=== PATIENT | female | born 1960 | race Caucasian/White ===

== ENCOUNTER 2016-04-21 09:38 | Emergency (ER) | payer MEDICAID ==
--- NOTE | 2016-04-21 10:30 | Emergency Department Record ---
History of Present Illness - General Chief Complaint: Cough Stated Complaint: BRONCHITIS Time Seen by Provider: 04/21/16 10:02 Source: Patient Mode of Arrival: Ambulatory Limitations: No limitations - History of Present Illness Initial Comments: pt has been sick for 10 days. she states she is on the 9th day of amoxicillin and is no better. she has a productive cough and sinus drainage and feels sob. no fevers,sweats or chills MD Complaint: Cough, Nasal congestion, Rhinorrhea, Sore throat Onset/Timin -: Days(s) Severity scale (1-10): 5 Consistency: Constant Improves With: Nothing Worsens With: Nothing Context: Sick contacts Associated Symptoms: Cough, Nasal congestion, Shortness of breath Treatments Prior to Arrival: Antibiotics - Related Data Home Medications Medication Instructions Recorded Confirmed Last Taken Hydrocodone/Acetaminophen [[place] 1 each PO ASDIR 08/11/13 04/21/16 04/07/16 7.5-325 Tablet] Ranitidine HCl [Zantac] 150 mg PO BID 08/11/13 04/21/16 04/12/16 Previous Rx's Medication Instructions Recorded Amoxicillin 500 mg PO TID #30 capsule 04/12/16 Azithromycin [Zithromax] 250 mg PO DAILY #6 tab 04/21/16 Allergies Allergy/AdvReac Type Severity Reaction Status Date / Time cephalexin monohydrate Allergy BLISTERS Verified 07/19/14 22:41 [From Keflex] ibuprofen [From Motrin] Allergy HIVES Verified 07/19/14 22:41 tetracycline [Tetracycline] Allergy HIVES Verified 07/19/14 22:41 Travel Screening - Travel/Exposure Within Last 30 Days Have you traveled within the last 30 days?: No Review of Systems Reviewed: No additional complaints except as noted below Constitutional: Reports: As per HPI. Denies: Chills, Fever, Malaise, Night sweats, Weakness, Weight change Eyes: Reports: As per HPI. Denies: Eye discharge, Eye pain, Photophobia, Vision change ENT: Reports: As per HPI. Denies: Congestion, Dental pain, Ear pain, Epistaxis , Hearing loss, Throat pain Respiratory: Reports: As per HPI. Denies: Cough, Dyspnea, Hemoptysis, Stridor, Wheezes Cardiovascular: Reports: As per HPI. Denies: Arrhythmia, Chest pain, Dyspnea on exertion, Edema, Murmurs, Orthopnea, Palpitations, Paroxysmal nocturnal dyspnea, Rheumatic Fever, Syncope Endocrine: Reports: As per HPI. Denies: Fatigue, Heat or cold intolerance, Polydipsia, Polyuria Gastrointestinal: Reports: As per HPI. Denies: Abdominal pain, Constipation, Diarrhea, Hematemesis, Hematochezia, Melena, Nausea, Vomiting Genitourinary: Reports: As per HPI. Denies: Abnormal menses, Discharge, Dyspareunia, Dysuria, Frequency, Hematuria, Incontinence, Retention, Urgency Musculoskeletal: Reports: As per HPI. Denies: Arthralgia, Back pain, Gout, Joint swelling, Myalgia, Neck pain Skin: Reports: As per HPI. Denies: Bruising, Change in color, Change in hair/ nails, Lesions, Pruritus, Rash Neurological: Reports: As per HPI. Denies: Abnormal gait, Confusion, Headache, Numbness, Paresthesias, Seizure, Tingling, Tremors, Vertigo, Weakness Psychiatric: Reports: As per HPI. Denies: Anxiety, Auditory hallucinations, Depression, Homicidal thoughts, Suicidal thoughts, Visual hallucinations Hematological/Lymphatic: Reports: As per HPI. Denies: Anemia, Blood Clots, Easy bleeding, Easy bruising, Swollen glands Past Medical History - SOCIAL HISTORY Smoking Status: Heavy tobacco smoker (>10/day) Alcohol Use: None Drug Use: None - RESPIRATORY Hx Respiratory Disorders: Yes Hx Bronchitis: Yes - CARDIOVASCULAR Hx Cardio Disorders: No - NEURO Hx Neuro Disorders: No - GI Hx GI Disorders: Yes Hx Reflux: Yes Hx Irritable Bowel: Yes Hx Pancreatitis: Yes (05/2014) Hx Ulcer: Yes Comment:: hiatal hernia - Hx Genitourinary Disorders: No - ENDOCRINE Hx Endocrine Disorders: No - MUSCULOSKELETAL Hx Musculoskeletal Disorders: Yes Comment:: psyiatic nerve pain - PSYCH Hx Psych Problems: No - HEMATOLOGY/ONCOLOGY Hx Hematology/Oncology Disorders: No Family Medical History Any Significant Family History?: Yes Family Hx Comment (NOT TO BE USED IN PLACE OF ITEMS BELOW): Mom has COPD Hx Heart Disease: Father Physical Exam - General General Appearance: Alert, Oriented x3, Cooperative, Mild distress - Head Head exam: Normal inspection - Eye Eye exam: Normal appearance, PERRL, EOMI Pupils: Normal accommodation - ENT ENT exam: Normal exam, Mucous membranes dry, Mucous membranes moist, Normal external ear exam, Normal orophraynx Ear exam: Normal external inspection. negative: External canal tenderness Nasal Exam: Normal inspection. negative: Discharge, Sinus tenderness Mouth exam: Normal external inspection, Tongue normal Teeth exam: Normal inspection. negative: Dental caries Throat exam: Tonsillar erythema. negative: Tonsillar exudate - Neck Neck exam: Normal inspection, Full ROM. negative: Tenderness - Respiratory Respiratory exam: Normal lung sounds bilaterally. negative: Respiratory distress - Cardiovascular Cardiovascular Exam: Regular rate, Normal rhythm, Normal heart sounds - GI/Abdominal GI/Abdominal exam: Soft, Normal bowel sounds. negative: Tenderness - Rectal Rectal exam: Deferred - exam: Deferred - Extremities Extremities exam: Normal inspection, Full ROM, Normal capillary refill. negative: Tenderness - Back Back exam: Reports: Normal inspection, Full ROM. Denies: Muscle spasm, Rash noted, Tenderness - Neurological Neurological exam: Alert, Normal gait, Oriented X3, Reflexes normal - Psychiatric Psychiatric exam: Normal affect, Normal mood - Skin Skin exam: Dry, Intact, Normal color, Warm Course Vital Signs 04/21/16 09:45 Temperature 98.0 F Pulse Rate 99 H Respiratory 18 Rate Blood Pressure 153/95 Pulse Ox 98 Disposition Disposition: Discharge Clinical Impression: Bronchitis Sinusitis Qualifiers: Sinusitis location: frontal Chronicity: acute Recurrence: not specified as recurrent Qualified Code(s): J01.10 - Acute frontal sinusitis, unspecified Disposition: Home, Self-Care Condition: (1) Good Instructions: Acute Bronchitis (ED), Sinusitis (ED) Additional Instructions: follow up with family doctor. return sooner if worse Prescriptions: Azithromycin [Zithromax] 250 mg PO DAILY #6 tab Forms: Patient Portal Access
--- NOTE | 2016-04-23 15:57 | RADIOLOGY REPORT ---
DATE: 04/21/2016 at 10:28 a.m. EXAM: CHEST, TWO VIEWS. HISTORY: Sinus drainage. Productive cough and weakness since 04/12/2016. TECHNIQUE: Upright PA and lateral views of the chest were obtained. COMPARISON: Two-view chest radiographic examination dated 07/19/2014. FINDINGS: The heart remains normal in size, and the pulmonary vasculature is nondilated. Mild bi-apical pleural and parenchymal scarring is again suggested ; stable. The lungs remain hyperinflated consistent with chronic obstructive pulmonary disease. No new lung consolidation, new costophrenic angle blunting, nor pneumothorax. Mild degenerative endplate changes are scattered within the visualized spine. IMPRESSION: 1. NO RADIOGRAPHIC EVIDENCE OF ACUTE CARDIOPULMONARY DISEASE WITHOUT SIGNIFICANT CHANGE SINCE 07/19/2014. 2. HYPERINFLATION OF THE LUNGS IS REDEMONSTRATED CONSISTENT WITH CHRONIC OBSTRUCTIVE PULMONARY DISEASE. MINOR BI-APICAL PLEURAL AND PARENCHYMAL SCARRING ALSO REDEMONSTRATED. JOB NUMBER: [id number] MTDD
== END 2016-04-21 11:44 | disposition home or self-care (01) ==
LOC: ER 09:38
DX: J20.9 Acute bronchitis, unspecified (principal); J01.10 Acute frontal sinusitis, unspecified; R06.02 Shortness of breath; F17.210 Nicotine dependence, cigarettes, uncomplicated
CPT/HCPCS: 71020; 99283

== ENCOUNTER 2016-05-03 11:34 | Emergency (ER) | payer MEDICAID | END 2016-05-03 11:54 | disposition left against medical advice (07) | LOC: ER 11:34 | DX: Z53.20 Procedure and treatment not carried out because of patient's decision for unspecified reasons (principal) ==

== ENCOUNTER 2016-05-07 18:05 | Emergency (ER) | payer MEDICAID ==
--- NOTE | 2016-05-07 18:45 | Emergency Department Record ---
History of Present Illness - General Chief Complaint: Abdominal Pain Stated Complaint: LEFT UPPER ABD PAIN Time Seen by Provider: 05/07/16 18:41 Source: Patient Mode of Arrival: Ambulatory Limitations: No limitations - History of Present Illness Initial Comments: The patient is here due to epigastric and LUQ AP which she describes as burning for the last 2 weeks. She did take some Abx's for a URI prior to the onset. She denies any CP, SOB, FRANCINE, fever, nausea or vomiting. The burning does not get better or worse with food intake. The patient seems to be coming and going and presently is gone. MD Complaint: Abdominal pain Onset/Timin -: Week(s) Location: LUQ Radiation: None Migration to: No migration Severity: Mild Quality: Burning Consistency: Intermittent Improves With: Nothing Worsens With: Nothing Context: Recent antibiotic use Associated Symptoms: Denies other symptoms - Related Data Patient : No Home Medications Medication Instructions Recorded Confirmed Last Taken Hydrocodone/Acetaminophen [[place] 1 each PO ASDIR 08/11/13 05/07/16 04/07/16 7.5-325 Tablet] Ranitidine HCl [Zantac] 150 mg PO BID 08/11/13 05/07/16 05/07/16 Allergies Allergy/AdvReac Type Severity Reaction Status Date / Time cephalexin monohydrate Allergy BLISTERS Verified 05/07/16 18:21 [From Keflex] ibuprofen [From Motrin] Allergy HIVES Verified 05/07/16 18:21 tetracycline [Tetracycline] Allergy HIVES Verified 05/07/16 18:21 Travel Screening - Travel/Exposure Within Last 30 Days Have you traveled within the last 30 days?: No Review of Systems Constitutional: Denies: Chills, Fever Eyes: Denies: Eye discharge ENT: Denies: Congestion Respiratory: Denies: Cough, Dyspnea Past Medical History - SOCIAL HISTORY Smoking Status: Heavy tobacco smoker (>10/day) Alcohol Use: None Drug Use: None - RESPIRATORY Hx Respiratory Disorders: Yes Hx Bronchitis: Yes - CARDIOVASCULAR Hx Cardio Disorders: No - NEURO Hx Neuro Disorders: No - GI Hx GI Disorders: Yes Hx Reflux: Yes Hx Pancreatitis: Yes (05/2014) Hx Ulcer: Yes Comment:: hiatal hernia - Hx Genitourinary Disorders: No - ENDOCRINE Hx Endocrine Disorders: No - MUSCULOSKELETAL Hx Musculoskeletal Disorders: Yes Comment:: psyiatic nerve pain - PSYCH Hx Psych Problems: No - HEMATOLOGY/ONCOLOGY Hx Hematology/Oncology Disorders: No Family Medical History Any Significant Family History?: Yes Family Hx Comment (NOT TO BE USED IN PLACE OF ITEMS BELOW): Mom has COPD Hx Heart Disease: Father Physical Exam - General General Appearance: Alert, Oriented x3, Cooperative, No acute distress - Head Head exam: Atraumatic, Normocephalic, Normal inspection - Eye Eye exam: Normal appearance, PERRL - Neck Neck exam: Normal inspection, Full ROM. negative: Tenderness - Respiratory Respiratory exam: Normal lung sounds bilaterally. negative: Respiratory distress - Cardiovascular Cardiovascular Exam: Regular rate, Normal rhythm, Normal heart sounds - GI/Abdominal GI/Abdominal exam: Soft, Normal bowel sounds. negative: Diminished bowel sounds , Guarding, Rebound, Rigid, Tenderness - Extremities Extremities exam: Normal inspection, Full ROM, Normal capillary refill. negative: Tenderness - Neurological Neurological exam: Alert, Normal gait. negative: Abnormal gait, Motor sensory deficit Course Vital Signs 05/07/16 18:15 Temperature 98.1 F Pulse Rate 80 Respiratory 16 Rate Blood Pressure 155/79 Pulse Ox 98 - Reevaluation(s) Reevaluation #1: After being here for an hour the patient suddenly states she needs to leave due to her ex being almost at another hospital. She did not wait for AMA papers and walked out. 05/07/16 19:53 Medical Decision Making - Data Complexity MDM Data: Labs Ordered and/or Reviewed - Lab Data Result diagrams: 05/07/16 19:03 05/07/16 19:03 Disposition Disposition: Discharge Clinical Impression: Abdominal pain Qualifiers: Abdominal location: left upper quadrant Qualified Code(s): R10.12 - Left upper quadrant pain Disposition: Against Medical Advice Condition: (1) Good Instructions: Abdominal Pain (ED) Forms: Patient Portal Access Time of Disposition: 19:54
[2016-05-07] MEDS ORDERED: MAGNESIUM HYDROXIDE/AL HYDROX 10.0001 ML, LIDOCAINE VISC 2% 200 MG, PHENOBARB/HYOSCY/AT... PO ONE ×3 (18:48)
[2016-05-07 19:11] LABS: BASO % 0.6 % (0-6); EOS % 1.6 % (0-6); GRAN % 52.6 % (47-80); HEMATOCRIT 37.6 % (35.0-47.0); HEMOGLOBIN 12.3 gm/dl (11.6-16.0); MEAN CELL VOLUME 91.9 fl (81-97); MEAN CORPUSCULAR HEMOGLOBIN 30.1 pg (27-33); MEAN CORPUSCULAR HGB CONC 32.7 g/dl (32-36); MEAN PLATELET VOLUME 9.6 fl (7.4-10.4); MONO % 8.2 % (0-9); PLATELET COUNT 344 K/uL (130-400); RED BLOOD COUNT 4.09 M/uL (3.80-5.40); RED CELL DISTRIBUTION WIDTH 13.9 % (11.5-14.5); WHITE BLOOD COUNT W/O DIFF 12.5 K/uL (4.2-12.2)
[2016-05-07 19:23] LABS: ALBUMIN 4.3 gm/dL (3.5-5.0); ALKALINE PHOSPHATASE 125 U/L (38-126); ALT/SGPT 26 U/L (9-52); ANION GAP 14.1 (7-16); AST/SGOT 16 U/L (14-36); BLOOD UREA NITROGEN 4 mg/dL (7-17); CARBON DIOXIDE 24.9 mmol/L (22-30); CREATININE 0.6 mg/dL (0.52-1.04); EST GLOMERULAR FILTRATION RATE > 60 ml/min; GLUCOSE,RANDOM 92 mg/dL (70-110); LIPASE 86 U/L (23-300); TOTAL PROTEIN 7.1 gm/dL (6.3-8.2)
== END 2016-05-07 19:25 | disposition left against medical advice (07) ==
LOC: ER 18:05
DX: R10.12 Left upper quadrant pain (principal)
CPT/HCPCS: 99283 ×2; 83690; 85025; 80076; 80048; J3490

== ENCOUNTER 2016-07-07 15:46 | Emergency (ER) | payer MEDICAID ==
--- NOTE | 2016-07-07 16:56 | Emergency Department Record ---
History of Present Illness - General Chief complaint: Lower Extremity Pain Stated complaint: L LEG PAIN Time Seen by Provider: 07/07/16 16:50 Source: Patient Mode of Arrival: Ambulatory Limitations: No limitations - History of Present Illness Initial comments: 55 yo female presents with left lower leg pain for about 4 days. The pain is posterior. No known injury. She states that she thinks it swells at times. No chest pain or shortness of breath. 30 years ago she had a right calf DVT during a . No history of recurrent clot. No fevers, chills, redness, numbness, coolness. PCP Dr Jeff CHERY Complaint: Extremity pain Onset/Timin -: Days(s) Location: Left, Knee -: Yes Myalgia Severity scale (1-10): 8 Quality: Burning Improves with: Nothing Worsens with: Nothing Associated Symptoms: Denies other symptoms - Related Data Home Medications Medication Instructions Recorded Confirmed Last Taken Hydrocodone/Acetaminophen [[place] 1 each PO ASDIR 08/11/13 07/07/16 07/05/16 7.5-325 Tablet] Ranitidine HCl [Zantac] 150 mg PO BID 08/11/13 07/07/16 07/07/16 Allergies Allergy/AdvReac Type Severity Reaction Status Date / Time cephalexin monohydrate Allergy BLISTERS Verified 07/07/16 16:38 [From Keflex] ibuprofen [From Motrin] Allergy HIVES Verified 07/07/16 16:38 tetracycline [Tetracycline] Allergy HIVES Verified 07/07/16 16:38 Travel Screening - Travel/Exposure Within Last 30 Days Have you traveled within the last 30 days?: No - Travel/Exposure Within Last Year Have you traveled outside the [place] in the last year?: No - Additonal Travel Details Have you been exposed to anyone with a communicable illness?: No - Travel Symptoms Symptom Screening: None Review of Systems Constitutional: Denies: Chills, Fever, Malaise, Weakness Eyes: Denies: Eye discharge ENT: Denies: Congestion, Ear pain, Throat pain Respiratory: Denies: Cough, Dyspnea, Wheezes Cardiovascular: Denies: Chest pain, Palpitations, Syncope Gastrointestinal: Denies: Abdominal pain, Diarrhea, Nausea, Vomiting Genitourinary: Denies: Dysuria, Urgency Musculoskeletal: Reports: Myalgia. Denies: Arthralgia, Back pain, Joint swelling, Neck pain Skin: Denies: Bruising, Change in color, Rash Neurological: Denies: Headache Psychiatric: Denies: Anxiety Hematological/Lymphatic: Denies: Blood Clots, Easy bleeding, Easy bruising, Swollen glands Past Medical History - SOCIAL HISTORY Smoking Status: Heavy tobacco smoker (>10/day) Alcohol Use: None Drug Use: None - RESPIRATORY Hx Respiratory Disorders: Yes Hx Bronchitis: Yes - CARDIOVASCULAR Hx Cardio Disorders: No - NEURO Hx Neuro Disorders: No - GI Hx GI Disorders: Yes Hx Reflux: Yes Hx Pancreatitis: Yes (05/2014) Hx Ulcer: Yes Comment:: hiatal hernia - Hx Genitourinary Disorders: No - ENDOCRINE Hx Endocrine Disorders: No - MUSCULOSKELETAL Hx Musculoskeletal Disorders: Yes Comment:: psyiatic nerve pain - PSYCH Hx Psych Problems: No - HEMATOLOGY/ONCOLOGY Hx Hematology/Oncology Disorders: No Family Medical History Any Significant Family History?: No Family Hx Comment (NOT TO BE USED IN PLACE OF ITEMS BELOW): Mom has COPD Hx Heart Disease: Father Physical Exam - General General Appearance: Alert, Oriented x3, Cooperative, No acute distress Limitations: No limitations - Head Head exam: Normal inspection - Eye Eye exam: Normal appearance, PERRL. negative: Conjunctival injection - ENT ENT exam: Normal exam Ear exam: Normal external inspection Nasal Exam: Normal inspection Mouth exam: Normal external inspection Teeth exam: Normal inspection Throat exam: Normal inspection - Neck Neck exam: Normal inspection, Full ROM. negative: Tenderness - Respiratory Respiratory exam: Normal lung sounds bilaterally. negative: Accessory muscle use, Chest wall tenderness, Decreased breath sounds, Prolonged expiratory, Respiratory distress, Rhonchi, Stridor, Wheezes - Cardiovascular Cardiovascular Exam: Regular rate, Normal rhythm, Normal heart sounds. negative : Tachycardia Peripheral Pulses: 2+: Radial (L) - GI/Abdominal GI/Abdominal exam: Soft. negative: Tenderness - Rectal Rectal exam: Deferred - exam: Deferred - Extremities Extremities exam: Normal inspection, Calf tenderness, Full ROM, Normal capillary refill, Tenderness. negative: Joint swelling, Pedal edema Image of Full Body: 1 - normal inspection, no visible sweliing or redness, she is tender from the popliteal to the ankle, no skin changes, no bruising. - Back Back exam: Denies: CVA tenderness (R), CVA tenderness (L), Paraspinal tenderness - Neurological Neurological exam: Alert, Normal gait, Oriented X3, Reflexes normal - Psychiatric Psychiatric exam: Normal affect, Normal mood - Skin Skin exam: Dry, Intact, Normal color, Warm. negative: Cyanosis, Diaphoretic, Erythema Course Vital Signs 07/07/16 16:23 Temperature 98.3 F Pulse Rate 101 H Respiratory 16 Rate Blood Pressure 157/91 Pulse Ox 97 - Reevaluation(s) Reevaluation #1: Venous doppler ordered for her calf pain on the left that occurred without known injury 07/07/16 16:57 Reevaluation #2: The doppler is negative for DVT Will DC to follow up with PCP Will discuss close follow up and and reasons to return to the ED 07/07/16 18:28 Disposition Disposition: Discharge Clinical Impression: Pain of left lower extremity Disposition: Home, Self-Care Condition: (1) Good Instructions: Leg Edema (ED), Leg Sprain (ED) Additional Instructions: Call your doctor for close follow up Rest, and avoid prolonged standing. Forms: Patient Portal Access Time of Disposition: 18:30
== END 2016-07-07 19:00 | disposition home or self-care (01) ==
LOC: ER 15:46
DX: M79.662 Pain in left lower leg (principal)
CPT/HCPCS: 99283

== ENCOUNTER 2016-12-21 14:04 | Emergency (ER) | payer MEDICAID ==
--- NOTE | 2016-12-21 14:48 | Emergency Department Record ---
History of Present Illness - General Chief complaint: ENT Stated complaint: COUGH Time Seen by Provider: 12/21/16 14:22 Source: Patient Mode of Arrival: Ambulatory Limitations: No limitations - History of Present Illness Initial comments: pt has productive cough, congestion, fevers. MD complaint: Sore throat Onset/Timin -: Days(s) Severity: Mild Severity scale (1-10): 2 Quality: Aching Consistency: Intermittent Improves with: None Worsens with: None Associated Symptoms: Cough, Fever, Pain with swallowing, Rhinorrhea, Sore throat - Related Data Previous Rx's Medication Instructions Recorded Azithromycin [Zithromax] 250 mg PO DAILY #6 tablet 12/21/16 Allergies Allergy/AdvReac Type Severity Reaction Status Date / Time cephalexin monohydrate Allergy BLISTERS Unverified 08/12/16 10:44 [From Keflex] ibuprofen [From Motrin] Allergy HIVES Unverified 08/12/16 10:44 sulfamethoxazole Allergy hives Unverified 08/12/16 10:44 [From Bactrim] tetracycline [Tetracycline] Allergy HIVES Unverified 08/12/16 10:44 trimethoprim [From Bactrim] Allergy hives Unverified 08/12/16 10:44 Travel Screening - Travel/Exposure Within Last 30 Days Have you traveled within the last 30 days?: No - Travel/Exposure Within Last Year Have you traveled outside the [place] in the last year?: No - Additonal Travel Details Have you been exposed to anyone with a communicable illness?: No - Travel Symptoms Symptom Screening: None Review of Systems Reviewed: No additional complaints except as noted below Constitutional: Reports: As per HPI. Denies: Chills, Fever, Malaise, Night sweats, Weakness, Weight change Eyes: Reports: As per HPI. Denies: Eye discharge, Eye pain, Photophobia, Vision change ENT: Reports: As per HPI. Denies: Congestion, Dental pain, Ear pain, Epistaxis , Hearing loss, Throat pain Respiratory: Reports: As per HPI. Denies: Cough, Dyspnea, Hemoptysis, Stridor, Wheezes Cardiovascular: Reports: As per HPI. Denies: Arrhythmia, Chest pain, Dyspnea on exertion, Edema, Murmurs, Orthopnea, Palpitations, Paroxysmal nocturnal dyspnea, Rheumatic Fever, Syncope Endocrine: Reports: As per HPI. Denies: Fatigue, Heat or cold intolerance, Polydipsia, Polyuria Gastrointestinal: Reports: As per HPI. Denies: Abdominal pain, Constipation, Diarrhea, Hematemesis, Hematochezia, Melena, Nausea, Vomiting Genitourinary: Reports: As per HPI. Denies: Abnormal menses, Discharge, Dyspareunia, Dysuria, Frequency, Hematuria, Incontinence, Retention, Urgency Musculoskeletal: Reports: As per HPI. Denies: Arthralgia, Back pain, Gout, Joint swelling, Myalgia, Neck pain Skin: Reports: As per HPI. Denies: Bruising, Change in color, Change in hair/ nails, Lesions, Pruritus, Rash Neurological: Reports: As per HPI. Denies: Abnormal gait, Confusion, Headache, Numbness, Paresthesias, Seizure, Tingling, Tremors, Vertigo, Weakness Psychiatric: Reports: As per HPI. Denies: Anxiety, Auditory hallucinations, Depression, Homicidal thoughts, Suicidal thoughts, Visual hallucinations Hematological/Lymphatic: Reports: As per HPI. Denies: Anemia, Blood Clots, Easy bleeding, Easy bruising, Swollen glands Past Medical History - SOCIAL HISTORY Smoking Status: Heavy tobacco smoker (>10/day) Alcohol Use: None Drug Use: None - RESPIRATORY Hx Respiratory Disorders: Yes Hx Bronchitis: Yes - CARDIOVASCULAR Hx Cardio Disorders: No - NEURO Hx Neuro Disorders: No - GI Hx GI Disorders: Yes Hx Reflux: Yes Hx Pancreatitis: Yes (05/2014) Hx Ulcer: Yes Comment:: hiatal hernia - Hx Genitourinary Disorders: No - ENDOCRINE Hx Endocrine Disorders: No - MUSCULOSKELETAL Hx Musculoskeletal Disorders: Yes Comment:: psyiatic nerve pain - PSYCH Hx Psych Problems: No - HEMATOLOGY/ONCOLOGY Hx Hematology/Oncology Disorders: No Family Medical History Any Significant Family History?: Yes Family Hx Comment (NOT TO BE USED IN PLACE OF ITEMS BELOW): Mom has COPD Hx Heart Disease: Father Physical Exam - General General Appearance: Alert, Oriented x3, Cooperative, Mild distress - Head Head exam: Normal inspection - Eye Eye exam: Normal appearance, PERRL, EOMI Pupils: Normal accommodation - ENT ENT exam: Normal exam, Mucous membranes moist, Normal external ear exam, Normal orophraynx, Other (r tm erythematous) Ear exam: Normal external inspection. negative: External canal tenderness Nasal Exam: Normal inspection. negative: Discharge, Sinus tenderness Mouth exam: Normal external inspection, Tongue normal Teeth exam: Normal inspection. negative: Dental caries Throat exam: Normal inspection, Tonsillar erythema. negative: Tonsillar exudate - Neck Neck exam: Normal inspection, Full ROM. negative: Tenderness - Respiratory Respiratory exam: Normal lung sounds bilaterally. negative: Respiratory distress - Cardiovascular Cardiovascular Exam: Regular rate, Normal rhythm, Normal heart sounds - GI/Abdominal GI/Abdominal exam: Soft, Normal bowel sounds. negative: Tenderness - Rectal Rectal exam: Deferred - exam: Deferred - Extremities Extremities exam: Normal inspection, Full ROM, Normal capillary refill. negative: Tenderness - Back Back exam: Reports: Normal inspection, Full ROM. Denies: Muscle spasm, Rash noted, Tenderness - Neurological Neurological exam: Alert, Normal gait, Oriented X3, Reflexes normal - Psychiatric Psychiatric exam: Normal affect, Normal mood - Skin Skin exam: Dry, Intact, Normal color, Warm Course Vital Signs 12/21/16 14:07 Temperature 98.4 F Pulse Rate 104 H Respiratory 18 Rate Blood Pressure 132/91 Pulse Ox 94 L Disposition Disposition: Discharge Clinical Impression: Bronchitis Disposition: Home, Self-Care Condition: (1) Good Instructions: Acute Bronchitis (ED) Additional Instructions: follow up with family doctor. return sooner if worse Prescriptions: Azithromycin [Zithromax] 250 mg PO DAILY #6 tablet Forms: Patient Portal Access Quality - Quality Measures Quality Measures: N/A - Blood Pressure Screening Does Patient Have Any of the Following: No Blood Pressure Classification: Hypertensive Reading Systolic Measurement: 132 Diastolic Measurement: 91 Screening for High Blood Pressure: < First Hypertensive BP, F/U Documented > [ [id number]] First Hypertensive Follow-up Interventions: Follow-up with rescreen GT 1 day and LT 4 weeks.
== END 2016-12-21 15:00 | disposition home or self-care (01) ==
LOC: ER 14:04
DX: J20.9 Acute bronchitis, unspecified (principal)
CPT/HCPCS: 99282

== ENCOUNTER 2017-01-01 12:37 | Emergency (ER) | payer MEDICAID ==
--- NOTE | 2017-01-01 12:48 | Emergency Department Record ---
History of Present Illness - General Chief Complaint: Cough Stated Complaint: COUGHING/CONGESTION Time Seen by Provider: 01/01/17 12:43 Source: Patient, Family Mode of Arrival: Ambulatory Limitations: No limitations - History of Present Illness Initial Comments: 56 yo female presents with cough for two weeks. She states she was seen in the ED on 12/21. She reports no improvement since that time. She is a smoker. NO fevers. No chills. She has clear sputum. Occasionally in the morning it is yellow. She states she feels wheezy in the mornings and the evenings. She was treated with a ZPack on the . No other current symptoms. No chest pain. She states she has not been short of breath at any point in time. PCP is Dr Flory Blackwell. Complaint: Cough -: Week(s) (2) Severity: Moderate Quality: Aching Consistency: Constant Improves With: Nothing Worsens With: Other (smoking) Associated Symptoms: Cough Treatments Prior to Arrival: Antibiotics, "Cold medicine" - Related Data Previous Rx's Medication Instructions Recorded Azithromycin [Zithromax] 250 mg PO DAILY #6 tablet 01/01/17 Benzonatate [Tessalon] 1 cap PO Q8H PRN #20 cap 01/01/17 Prednisone [Prednisone 20Mg] 20 mg PO BID #10 tab 01/01/17 Allergies Allergy/AdvReac Type Severity Reaction Status Date / Time cephalexin monohydrate Allergy BLISTERS Verified 01/01/17 12:46 [From Keflex] ibuprofen [From Motrin] Allergy HIVES Verified 01/01/17 12:46 sulfamethoxazole Allergy hives Verified 01/01/17 12:46 [From Bactrim] tetracycline [Tetracycline] Allergy HIVES Verified 01/01/17 12:46 trimethoprim [From Bactrim] Allergy hives Verified 01/01/17 12:46 Review of Systems Constitutional: Denies: Chills, Fever, Malaise, Weakness Eyes: Denies: Eye discharge, Eye pain, Photophobia, Vision change ENT: Reports: Congestion. Denies: Throat pain Respiratory: Reports: Cough, Wheezes. Denies: Dyspnea, Hemoptysis, Stridor Cardiovascular: Denies: Chest pain, Palpitations, Syncope Endocrine: Denies: Fatigue, Polydipsia, Polyuria Gastrointestinal: Denies: Abdominal pain, Diarrhea, Nausea, Vomiting Genitourinary: Denies: Dysuria, Urgency Musculoskeletal: Denies: Arthralgia, Back pain, Myalgia, Neck pain Skin: Denies: Bruising, Change in color, Rash Neurological: Denies: Headache, Numbness, Vertigo, Weakness Psychiatric: Denies: Anxiety Hematological/Lymphatic: Denies: Anemia, Blood Clots, Easy bleeding, Easy bruising, Swollen glands Past Medical History - SOCIAL HISTORY Smoking Status: Heavy tobacco smoker (>10/day) Drug Use: None - RESPIRATORY Hx Respiratory Disorders: Yes Hx Bronchitis: Yes - CARDIOVASCULAR Hx Cardio Disorders: No - NEURO Hx Neuro Disorders: No - GI Hx GI Disorders: Yes Hx Reflux: Yes Hx Pancreatitis: Yes (05/2014) Hx Ulcer: Yes Comment:: hiatal hernia - Hx Genitourinary Disorders: No - ENDOCRINE Hx Endocrine Disorders: No - MUSCULOSKELETAL Hx Musculoskeletal Disorders: Yes Comment:: psyiatic nerve pain - PSYCH Hx Psych Problems: No - HEMATOLOGY/ONCOLOGY Hx Hematology/Oncology Disorders: No Family Medical History Family Hx Comment (NOT TO BE USED IN PLACE OF ITEMS BELOW): Mom has COPD Hx Heart Disease: Father Physical Exam - General General Appearance: Alert, Oriented x3, Cooperative, No acute distress Limitations: No limitations - Head Head exam: Atraumatic, Normocephalic, Normal inspection - Eye Eye exam: Normal appearance. negative: Conjunctival injection, Periorbital swelling - ENT ENT exam: Normal exam, Mucous membranes moist Ear exam: Normal external inspection Nasal Exam: Discharge Mouth exam: Normal external inspection Teeth exam: Normal inspection Throat exam: Normal inspection. negative: Tonsillar erythema, Tonsillomegaly, Tonsillar exudate, R peritonsillar mass, L peritonsillar mass - Neck Neck exam: Normal inspection, Full ROM. negative: Lymphadenopathy, Tenderness - Respiratory Respiratory exam: Normal lung sounds bilaterally. negative: Accessory muscle use, Decreased breath sounds, Prolonged expiratory, Rales, Respiratory distress , Rhonchi, Stridor, Wheezes - Cardiovascular Cardiovascular Exam: Regular rate, Normal rhythm, Normal heart sounds - GI/Abdominal GI/Abdominal exam: Soft. negative: Tenderness - Rectal Rectal exam: Deferred - exam: Deferred - Extremities Extremities exam: Normal inspection, Full ROM, Normal capillary refill. negative: Pedal edema, Tenderness - Back Back exam: Reports: Normal inspection, Full ROM. Denies: CVA tenderness (R), CVA tenderness (L), Muscle spasm, Rash noted, Tenderness - Neurological Neurological exam: Alert, Normal gait, Oriented X3 - Psychiatric Psychiatric exam: Normal affect, Normal mood - Skin Skin exam: Dry, Intact, Normal color, Warm Course - Reevaluation(s) Reevaluation #1: The chest XR was reviewed No acute infiltrate or changes from the prior in April Given her productive cough she will be treated with antibiotic, Tessalon, and Prednisone. 01/01/17 13:05 01/01/17 13:09 Disposition Disposition: Discharge Clinical Impression: Bronchitis, Cough Disposition: Home, Self-Care Condition: (1) Good Instructions: Chronic Bronchitis (ED) Additional Instructions: Call your doctor for close follow up Return to the ER if worse, fever, pain or shortness of breath Prescriptions: Azithromycin [Zithromax] 250 mg PO DAILY #6 tablet Benzonatate [Tessalon] 1 cap PO Q8H PRN #20 cap PRN Reason: Cough Prednisone [Prednisone 20Mg] 20 mg PO BID #10 tab Forms: Patient Portal Access Time of Disposition: 13:07 Quality - Quality Measures Quality Measures: N/A - Blood Pressure Screening Does Patient Have Any of the Following: No Blood Pressure Classification: Hypertensive Reading Systolic Measurement: 143 Diastolic Measurement: 94 Screening for High Blood Pressure: < Pre-Hypertensive BP, F/U Documented > [ G8950] Pre-Hypertensive Follow-up Interventions: Referral to alternative/primary care provider.
--- NOTE | 2017-01-01 15:11 | RADIOLOGY REPORT ---
EXAM: CHEST 2 VIEWS HISTORY: DIFFICULTY IN BREATHING. TECHNIQUE: Frontal and lateral views of the chest were performed. FINDINGS: Heart size normal. Lung morales are clear. Osseous structures are normal. IMPRESSION: NO ACUTE DISEASE PROCESS. JOB NUMBER: [id number] MTDD
== END 2017-01-01 13:19 | disposition home or self-care (01) ==
LOC: ER 12:37
DX: J20.9 Acute bronchitis, unspecified (principal); R06.00 Dyspnea, unspecified; F17.210 Nicotine dependence, cigarettes, uncomplicated
CPT/HCPCS: 71020; 99283

== ENCOUNTER 2017-04-20 11:34 | Emergency (ER) | payer MEDICAID ==
--- NOTE | 2017-04-20 11:53 | Emergency Department Record ---
History of Present Illness - General Chief complaint: Extremity Problem Stated complaint: FELL/WRIST INJURY Time Seen by Provider: 04/20/17 11:48 Source: Patient Mode of Arrival: Ambulatory Limitations: No limitations - History of Present Illness Initial comments: The patient is here due to L wrist pain. She fell on the L wrist 4 days ago and had no pain until today. This AM the wrist became very painful and now she is unable to move it. She denies any new fall or trauma. MD Complaint: Extremity pain Onset/Timin -: Days(s) Location: Left, Other History of Same: No Radiation: Distal Severity scale (1-10): 10 Quality: Aching Consistency: Intermittent Improves with: Immobilization Worsens with: Other Associated Symptoms: Denies other symptoms - Related Data Allergies Allergy/AdvReac Type Severity Reaction Status Date / Time cephalexin monohydrate Allergy BLISTERS Verified 04/20/17 11:40 [From Keflex] ibuprofen [From Motrin] Allergy HIVES Verified 04/20/17 11:40 sulfamethoxazole Allergy hives Verified 04/20/17 11:40 [From Bactrim] tetracycline [Tetracycline] Allergy HIVES Verified 04/20/17 11:40 trimethoprim [From Bactrim] Allergy hives Verified 04/20/17 11:40 Travel Screening - Travel/Exposure Within Last 30 Days Have you traveled within the last 30 days?: No Review of Systems Constitutional: Denies: Chills, Fever Past Medical History - SOCIAL HISTORY Smoking Status: Heavy tobacco smoker (>10/day) Alcohol Use: None Drug Use: None - RESPIRATORY Hx Respiratory Disorders: Yes Hx Bronchitis: Yes - CARDIOVASCULAR Hx Cardio Disorders: No - NEURO Hx Neuro Disorders: No - GI Hx GI Disorders: Yes Hx Reflux: Yes Hx Pancreatitis: Yes (05/2014) Hx Ulcer: Yes Comment:: hiatal hernia - Hx Genitourinary Disorders: No - ENDOCRINE Hx Endocrine Disorders: No - MUSCULOSKELETAL Hx Musculoskeletal Disorders: Yes Comment:: psyiatic nerve pain - PSYCH Hx Psych Problems: No - HEMATOLOGY/ONCOLOGY Hx Hematology/Oncology Disorders: No Family Medical History Any Significant Family History?: Yes Family Hx Comment (NOT TO BE USED IN PLACE OF ITEMS BELOW): Mom has COPD Hx Heart Disease: Father Physical Exam - General General Appearance: Alert, Cooperative, No acute distress - Head Head exam: Atraumatic, Normocephalic - Eye Eye exam: Normal appearance, PERRL - Extremities Extremities exam: Normal inspection (There is no swelling or bruising.), Tenderness (There is diffuse dorsal L wrist tenderness. ), Other (The L wrist and hand is NVI.). negative: Full ROM Course Vital Signs 04/20/17 11:41 Temperature 98.0 F Pulse Rate 112 H Respiratory 18 Rate Blood Pressure 167/91 Pulse Ox 98 - Reevaluation(s) Reevaluation #1: I did discuss the neg xrays with the patient and the need for using a splint for a week. She is to see her PCP if not better in a week. 04/20/17 12:40 Medical Decision Making - Data Complexity MDM Data: X-Ray Ordered and/or Reviewed - Radiology Data Radiology results: Report reviewed (L Wrist: Neg per Rad.) Disposition Disposition: Discharge Clinical Impression: Wrist pain, left Disposition: Home, Self-Care Condition: (2) Stable Instructions: Wrist Injury (ED) Additional Instructions: Please wear the splint for a week. Please use ice to the wrist during the day. See your PCP if not better by next week and continue your home pain medicines. Forms: Patient Portal Access Time of Disposition: 12:41 Quality - Quality Measures Quality Measures: N/A - Blood Pressure Screening View Details: Yes Does Patient Have Any of the Following: No Blood Pressure Classification: Pre-Hypertensive BP Reading Systolic Measurement: 131 Diastolic Measurement: 84 Screening for High Blood Pressure: < Pre-Hypertensive BP, F/U Documented > [ G8950] Pre-Hypertensive Follow-up Interventions: Referral to alternative/primary care provider.
--- NOTE | 2017-04-21 08:47 | RADIOLOGY REPORT ---
EXAM: LEFT WRIST COMPLETE HISTORY: LEFT WRIST PAIN FOUR DAYS POST FALL. TECHNIQUE: AP, oblique, lateral and navicular views of the left wrist were obtained. Comparison: None. Encounter: Initial. FINDINGS: There is normal bone mineralization. No definite acute fracture, dislocation, or destructive bone lesion is seen. The articular relations are maintained. There is dorsal soft tissue swelling. IMPRESSION: NO DEFINITE ACUTE FRACTURE NOR DISLOCATION. DORSAL SOFT TISSUE SWELLING. JOB NUMBER: [id number] [facility]
== END 2017-04-20 12:57 | disposition home or self-care (01) ==
LOC: ER 11:34
DX: G89.11 Acute pain due to trauma (principal); M25.532 Pain in left wrist; W00.0XXA Fall on same level due to ice and snow, initial encounter; F17.210 Nicotine dependence, cigarettes, uncomplicated
CPT/HCPCS: 99283

== ENCOUNTER 2017-08-17 17:48 | Emergency (ER) | payer MEDICAID ==
--- NOTE | 2017-08-17 18:24 | Emergency Department Record ---
History of Present Illness - General Chief complaint: Lower Extremity Pain Stated complaint: LT KNEE PAIN/SWELLING JUST BELOW KNEE Time Seen by Provider: 08/17/17 18:17 Source: Patient Mode of Arrival: Ambulatory Limitations: No limitations - History of Present Illness Initial comments: The patient is here due to L knee pain for about 2 months. The pain is worse at night when she turns over and twists. There is mild pain with walking. She denies any trauma or injury and has had no thigh, or calf pain. MD Complaint: Extremity pain Onset/Timin -: Month(s) Location: Left, Knee Severity scale (1-10): 6 Quality: Aching Consistency: Constant Improves with: Nothing, Other Worsens with: Walking - Related Data Previous Rx's Medication Instructions Recorded Methylprednisolone [Medrol Dose 4 mg PO DAILY #1 tab.ds.pk 08/17/17 Pack] Allergies Allergy/AdvReac Type Severity Reaction Status Date / Time cephalexin monohydrate Allergy BLISTERS Verified 08/17/17 18:15 [From Keflex] ibuprofen [From Motrin] Allergy HIVES Verified 08/17/17 18:15 sulfamethoxazole Allergy hives Verified 08/17/17 18:15 [From Bactrim] tetracycline [Tetracycline] Allergy HIVES Verified 08/17/17 18:15 trimethoprim [From Bactrim] Allergy hives Verified 08/17/17 18:15 Travel Screening - Travel/Exposure Within Last 30 Days Have you traveled within the last 30 days?: No - Travel/Exposure Within Last Year Have you traveled outside the [place] in the last year?: No - Additonal Travel Details Have you been exposed to anyone with a communicable illness?: No - Travel Symptoms Symptom Screening: None Review of Systems Constitutional: Denies: Chills, Fever Eyes: Denies: Eye discharge ENT: Denies: Congestion Respiratory: Denies: Cough, Dyspnea Past Medical History - SOCIAL HISTORY Smoking Status: Current every day smoker Alcohol Use: None Drug Use: None - RESPIRATORY Hx Respiratory Disorders: Yes Hx Bronchitis: Yes - CARDIOVASCULAR Hx Cardio Disorders: No - NEURO Hx Neuro Disorders: No - GI Hx GI Disorders: Yes Hx Reflux: Yes Hx Hiatal Hernia: Yes Hx Pancreatitis: Yes (05/2014) Hx Ulcer: Yes Comment:: hiatal hernia - Hx Genitourinary Disorders: No - ENDOCRINE Hx Endocrine Disorders: No - MUSCULOSKELETAL Hx Musculoskeletal Disorders: Yes Comment:: psyiatic nerve pain - PSYCH Hx Psych Problems: No - HEMATOLOGY/ONCOLOGY Hx Hematology/Oncology Disorders: No Family Medical History Any Significant Family History?: No Family Hx Comment (NOT TO BE USED IN PLACE OF ITEMS BELOW): Mom has COPD Hx Heart Disease: Father Physical Exam - General General Appearance: Alert, Cooperative, No acute distress - Head Head exam: Atraumatic, Normocephalic, Normal inspection - Eye Eye exam: Normal appearance, PERRL - Extremities Extremities exam: Normal inspection, Full ROM (with pain on full flexion.), Normal capillary refill, Tenderness (There is diffuse anterior knee tenderness.) . negative: Calf tenderness, Joint swelling (There is no joint effusion.), Pedal edema - Neurological Neurological exam: Alert, Normal gait. negative: Abnormal gait, Motor sensory deficit Course Vital Signs 08/17/17 18:05 Temperature 97.8 F Pulse Rate 87 Respiratory 18 Rate Blood Pressure 150/79 Pulse Ox 98 - Reevaluation(s) Reevaluation #1: I did discuss the need for a Medrol dose pack along with her home pain medicines. She is to keep her appointment with her PCP and possibly obtain an Ortho referral if not better. 08/17/17 18:57 Medical Decision Making - Data Complexity MDM Data: X-Ray Ordered and/or Reviewed (L knee: Neg per Rad.) Disposition Disposition: Discharge Clinical Impression: Knee pain, left Qualifiers: Chronicity: acute Qualified Code(s): M25.562 - Pain in left knee Disposition: Home, Self-Care Condition: (2) Stable Instructions: Knee Pain (ED) Additional Instructions: Please continue your regular medicines and add the MEdrol Dose pack. Please see your family doctor as planned and possibly obtain an ORtho referral. Return to the ER if worse. Prescriptions: Methylprednisolone [Medrol Dose Pack] 4 mg PO DAILY #1 tab.ds.pk Forms: Patient Portal Access Time of Disposition: 18:59 Quality - Quality Measures Quality Measures: N/A - Blood Pressure Screening View Details: Yes Does Patient Have Any of the Following: No Blood Pressure Classification: Hypertensive Reading Systolic Measurement: 150 Diastolic Measurement: 79 Screening for High Blood Pressure: < First Hypertensive BP, F/U Documented > [ G8950] First Hypertensive Follow-up Interventions: Referral to alternative/primary care provider.
--- NOTE | 2017-08-18 19:40 | RADIOLOGY REPORT ---
EXAM: KNEE, LEFT 4 VIEWS HISTORY: KNEE PAIN, NO TRAUMA. ENCOUNTER: Initial. COMPARISON: None. FINDINGS: Four views of the left knee show intact bony structures, no fracture , bone lesion. No significant degenerative change. No joint effusion. IMPRESSION: NORMAL FINDINGS IN THE LEFT KNEE. JOB NUMBER: [id number] MTDD
== END 2017-08-17 19:11 | disposition home or self-care (01) ==
LOC: ER 17:48
DX: M25.562 Pain in left knee (principal); F17.210 Nicotine dependence, cigarettes, uncomplicated
CPT/HCPCS: 99283

== ENCOUNTER 2017-09-09 19:21 | Emergency (ER) | payer MEDICAID ==
--- NOTE | 2017-09-09 19:37 | Emergency Department Record ---
History of Present Illness - General Chief complaint: Abscess Stated complaint: LUMP UNDER CHIN Time Seen by Provider: 09/09/17 19:36 Source: Patient Mode of Arrival: Ambulatory Limitations: No limitations - History of Present Illness Initial comments: 56 yo female presents to ED for evaluation of a painful lesion to the right anterior paracervical region that she noted this evening. Patient denies redness, fever, or recent illness. Patient denies injury or trauma to the area. Patient denies health problems at her baseline. MD complaint: Lesion Onset/Timin -: Minutes(s) Location: Neck Quality: Aching Consistency: Intermittent Improves with: None Worsens with: Palpation Associated symptoms: Denies other symptoms Treatments Prior to Arrival: None - Related Data Home Medications Medication Instructions Recorded Confirmed Last Taken Hydrocodone/Acetaminophen [[place] 1 - 2 tab PO Q6H PRN 09/09/17 09/09/17 Unknown 10mg/325mg] Allergies Allergy/AdvReac Type Severity Reaction Status Date / Time cephalexin monohydrate Allergy BLISTERS Verified 08/17/17 18:15 [From Keflex] ibuprofen [From Motrin] Allergy HIVES Verified 08/17/17 18:15 sulfamethoxazole Allergy hives Verified 08/17/17 18:15 [From Bactrim] tetracycline [Tetracycline] Allergy HIVES Verified 08/17/17 18:15 trimethoprim [From Bactrim] Allergy hives Verified 08/17/17 18:15 Travel Screening - Travel/Exposure Within Last 30 Days Have you traveled within the last 30 days?: No - Travel Symptoms Symptom Screening: None Review of Systems Constitutional: Denies: Chills, Fever, Malaise, Night sweats Eyes: Denies: Eye discharge, Eye pain ENT: Denies: Congestion, Ear pain, Epistaxis Respiratory: Denies: Cough, Dyspnea Cardiovascular: Denies: Chest pain, Dyspnea on exertion Endocrine: Denies: Fatigue, Heat or cold intolerance Gastrointestinal: Denies: Abdominal pain, Nausea, Vomiting Genitourinary: Denies: Incontinence, Retention Musculoskeletal: Reports: Neck pain (Neck lesion). Denies: Arthralgia, Back pain, Gout, Joint swelling Skin: Denies: Bruising, Change in color Neurological: Denies: Abnormal gait, Confusion, Headache, Seizure Psychiatric: Denies: Anxiety Hematological/Lymphatic: Denies: Anemia, Blood Clots Past Medical History - SOCIAL HISTORY Smoking Status: Current every day smoker - RESPIRATORY Hx Respiratory Disorders: Yes Hx Bronchitis: Yes - CARDIOVASCULAR Hx Cardio Disorders: No - NEURO Hx Neuro Disorders: No - GI Hx GI Disorders: Yes Hx Diverticulitis: Yes Hx Reflux: Yes Hx Hiatal Hernia: Yes Hx Pancreatitis: Yes (05/2014) Hx Ulcer: Yes Comment:: hiatal hernia - Hx Genitourinary Disorders: No - ENDOCRINE Hx Endocrine Disorders: No - MUSCULOSKELETAL Hx Musculoskeletal Disorders: Yes Comment:: sciatic nerve pain - PSYCH Hx Psych Problems: No - HEMATOLOGY/ONCOLOGY Hx Hematology/Oncology Disorders: No Family Medical History Any Significant Family History?: Yes Family Hx Comment (NOT TO BE USED IN PLACE OF ITEMS BELOW): Mom has COPD Hx Heart Disease: Father Hx Resp Disorders: Mother Physical Exam - General General Appearance: Alert, Oriented x3, Cooperative, No acute distress Limitations: No limitations - Head Head exam: Atraumatic, Normocephalic, Normal inspection Head exam detail: negative: Abrasion, Contusion, Rosas's sign, General tenderness, Hematoma, Laceration - Eye Eye exam: Normal appearance. negative: Conjunctival injection, Periorbital swelling, Periorbital tenderness, Scleral icterus - ENT Ear exam: negative: Auricular hematoma, Auricular trauma Nasal Exam: negative: Active bleeding, Discharge, Dried blood, Foreign body Mouth exam: negative: Drooling, Laceration, Muffled voice, Tongue elevation - Neck Neck exam: Lymphadenopathy, Tenderness, Other (1.0 cm subcutaneous lesion that is freely moveable on examination, findings are c/w enlarged lymph node vs. possible enlarged submandibular gland (less likely)). negative: Meningismus - Respiratory Respiratory exam: Normal lung sounds bilaterally. negative: Rales, Respiratory distress, Rhonchi, Stridor - Cardiovascular Cardiovascular Exam: Regular rate, Normal rhythm, Normal heart sounds - GI/Abdominal GI/Abdominal exam: Soft. negative: Rebound, Rigid, Tenderness - Rectal Rectal exam: Deferred - exam: Deferred - Extremities Extremities exam: Normal inspection. negative: Calf tenderness, Pedal edema, Tenderness - Back Back exam: Denies: CVA tenderness (R), CVA tenderness (L) - Neurological Neurological exam: Alert, Normal gait, Oriented X3 - Psychiatric Psychiatric exam: Normal affect, Normal mood - Skin Skin exam: Normal color. negative: Abrasion Type of lesion: negative: abrasion Course Vital Signs 05/30/18 19:28 Temperature 98.5 F Pulse Rate [ 96 H Pulse Ox Probe] Respiratory 18 Rate Blood Pressure 153/82 [Left Arm] Pulse Ox 97 - Reevaluation(s) Reevaluation #1: 09/09/17 19:41 Patient's examination appears c/w an enlarged lymph node vs. possible mild inflammation of right sub-mandibular gland. Patient was instructed to take Ibuprofen as directed for her pain symptoms, and to follow-up with her PCP in 10-14 days for re-evaluation of her symptoms with her PCP. Patient verbalizes understanding of these instructions, and appears stable for discharge at this time. Disposition Disposition: Discharge Clinical Impression: Lymphadenopathy Disposition: Home, Self-Care Condition: (2) Stable Instructions: Lymphadenopathy (ED) Additional Instructions: Return to ED if your symptoms worsen or if you have any concerns. Follow-up with your family doctor for reassessment in 10-14 days. Forms: Patient Portal Access Time of Disposition: 19:37 Quality - Quality Measures Quality Measures: N/A - Blood Pressure Screening Does Patient Have Any of the Following: No Blood Pressure Classification: Pre-Hypertensive BP Reading Systolic Measurement: 153 Diastolic Measurement: 82 Screening for High Blood Pressure: < Pre-Hypertensive BP, F/U Documented > [ G8950] Pre-Hypertensive Follow-up Interventions: Referral to alternative/primary care provider.
== END 2017-09-09 19:36 | disposition home or self-care (01) ==
LOC: ER 19:21
DX: R59.1 Generalized enlarged lymph nodes (principal); F17.210 Nicotine dependence, cigarettes, uncomplicated
CPT/HCPCS: 99282